=== PATIENT | female | born 1955 | race African-American/Black ===

== ENCOUNTER 2022-01-30 07:19 | Emergency (ER) | payer MEDICARE, MEDICAID ==
[~2022-01-30] VITALS: Ht 170.2 cm; Wt 82.0 kg
[~2022-01-30 07:19] MED LIST: [UNRECOGNIZED DRUG - REMARK]
[2022-01-30] MEDS ORDERED: ACETAMINOPHEN 325MG TABLET PO ONE (08:15)
[2022-01-30] MEDS ORDERED: IBUPROFEN 400MG TABLET PO ONE (08:15)
[2022-01-30 08:53] VITALS: BP 141/99
== END 2022-01-30 09:24 | disposition home or self-care (01) ==
LOC: ER 07:19
DX: M25.522 Pain in left elbow (principal); M77.8 Other enthesopathies, not elsewhere classified
CPT/HCPCS: 73080; 99283

== ENCOUNTER 2024-05-30 09:54 | Emergency (ER) | payer MEDICARE, MEDICAID ==
[~2024-05-30] VITALS: Ht 165.1 cm; Wt 69.0 kg
[2024-05-30 09:57] VITALS: TEMP 98.7; O2SAT 100
[2024-05-30] MEDS ORDERED: TOPUD MT (10:13)
[2024-05-30] MEDS ORDERED: AMOX1TAB16 MT (10:13)
[2024-05-30 10:15] VITALS: BP 152/95; PULSE 97; RESP 20
[2024-05-30] MEDS: ACETAMINOPHEN 325MG TABLET PO ONE (10:15)
[2024-05-30] MEDS: KETOROLAC 30MG/ML VIAL IM ONE (10:15)
== END 2024-05-30 12:30 | disposition home or self-care (01) ==
LOC: ER 09:54
DX: K04.7 Periapical abscess without sinus (principal); I10 Essential (primary) hypertension; Z88.8 Allergy status to other drugs, medicaments and biological substances
CPT/HCPCS: 99283; 96372; J1885

== ENCOUNTER 2025-06-19 06:59 | Emergency (ER) | payer MEDICARE, MEDICAID ==
[~2025-06-19] VITALS: Ht 165.1 cm; Wt 71.7 kg
[~2025-06-19 06:59] MED LIST changes: +AMOX1TAB16 MT; +TOPUD MT
[2025-06-19 07:01] VITALS: TEMP 36.7; O2SAT 99
[2025-06-19] MEDS ORDERED: FLUT9.9S BOTHNSTRLS (07:36)
[2025-06-19] MEDS ORDERED: OCUFLX LEFTEYE (07:36)
[2025-06-19 07:51] VITALS: BP 164/89; PULSE 81; RESP 18; O2SAT 98
== END 2025-06-19 07:52 | disposition home or self-care (01) ==
LOC: ER 06:59
DX: H57.89 Other specified disorders of eye and adnexa (principal); R51.9 Headache, unspecified; I10 Essential (primary) hypertension; E78.00 Pure hypercholesterolemia, unspecified; Z98.890 Other specified postprocedural states; Z79.899 Other long term (current) drug therapy
CPT/HCPCS: 82962; 99283